=== PATIENT | male | born 1950 | race Caucasian/White ===

== ENCOUNTER 2017-12-12 10:32 | Emergency (ER) | payer MEDICARE, OTHER ==
[~2017-12-12] VITALS: Ht 172.7 cm; Wt 75.0 kg
[~2017-12-12 10:32] MED LIST: FOSI40TA PO; NORV5TAB PO; ZETI10TA5 PO
[2017-12-12 10:33] VITALS: BP 150/76; PULSE 55; RESP 18; TEMP 98.3; O2SAT 99
[2017-12-12] MEDS ORDERED: AMLO5 PO (10:42)
[2017-12-12] MEDS ORDERED: FOSI40TA PO (10:42)
[2017-12-12] MEDS ORDERED: EZET1TAB8 PO (10:42)
[2017-12-12 10:46] VITALS: BP_SYST 149; BP_SYST 156; BP_SYST 168; BP_DIAS 74; BP_DIAS 76; BP_DIAS 80; RESP 16
[2017-12-12] MEDS ORDERED: SODIUM CHLORID 0.9% 500 ML INJ 500 ML IV ONE (11:15)
[2017-12-12] MEDS ORDERED: SODIUM CHLORIDE 0.9% FLUSH 10 ML FLUSH IVF PRN (11:15)
--- NOTE | 2017-12-12 11:18 | PD ---
HPI Chief Complaint: Dizziness Time Seen by Provider: 11:02 Travel History International Travel<30 days: No Contact w/Intl Traveler<30days: No Traveled to known affect area: No History of Present Illness HPI Patient comes emergency department complaining of lightheadedness that began this morning around 7 AM. Patient states that he was working in his garage when symptoms began. Patient reports symptoms improved with rest and get worse with going from sitting to standing. Patient denies any fevers, chest pain, shortness of breath, loss change in bowel or bladder, abdominal pain, being on any blood thinners, headaches, change in vision, or weakness. Severity mild. PFSH Past Medical History Cardiovascular Problems: Yes (TRIPLE BYPASS) High Cholesterol: Yes Diminished Hearing: Yes Hypertension: Yes Tetanus Vaccination: Unknown Influenza Vaccination: No Past Surgical History Abdominal Surgery: Yes (inguinal hernia) Appendectomy: Yes Coronary Artery Bypass Graft: Yes Social History Alcohol Use: No Tobacco Use: No Substance Use: No Allergies-Medications (Allergen,Severity, Reaction): Coded Allergies: No Known Allergies (Verified Adverse Reaction, Unknown, 12/12/17) Reported Meds & Prescriptions Reported Meds & Active Scripts Active Reported Norvasc (Amlodipine Besylate) 5 Mg Tab 5 Mg PO DAILY Fosinopril (Fosinopril Sodium) 40 Mg Tab 40 Mg PO DAILY Ezetimibe 10 Mg Tab 10 Mg PO DAILY Review of Systems Except as stated in HPI: all other systems reviewed are Neg Physical Exam Narrative GENERAL: Well-developed, well nourished, in no acute distress, and non-ill appearing. SKIN: Focused skin assessment warm and dry. HEAD: Atraumatic. Normocephalic. EYES: Pupils equal and round. EOMI. No scleral icterus. No injection or drainage. ENT: No nasal bleeding or discharge. Mucous membranes pink and moist. NECK: Trachea midline. No JVD. Supple. No nuclear rigidity. CARDIOVASCULAR: Regular rate and rhythm. No murmur appreciated. RESPIRATORY: No accessory muscle use. No respiratory distress. Clear to auscultation. Breath sounds equal bilaterally. MUSCULOSKELETAL: No obvious deformities. No clubbing. No cyanosis. No edema. Full range of motion. NEUROLOGICAL: Awake and alert. No obvious cranial nerve deficits. Motor grossly within normal limits. Normal speech. PSYCHIATRIC: Appropriate mood and affect; insight and judgment normal. Data Data Last Documented VS Vital Signs Date Time Temp Pulse Resp B/P (MAP) Pulse Ox O2 Delivery O2 Flow Rate FiO2 12/12/17 12:23 63 16 158/80 (106) 98 12/12/17 11:23 Room Air 12/12/17 10:33 98.3 Orders Orders Electrocardiogram (12/12/17 11:12) Basic Metabolic Panel (Bmp) (12/12/17 11:12) Complete Blood Count With Diff (12/12/17 11:12) Magnesium (Mg) (12/12/17 11:12) Act Partial Throm Time (Ptt) (12/12/17 11:12) Prothrombin Time / Inr (Pt) (12/12/17 11:12) Ct Brain W/O Iv Contrast(Rout) (12/12/17 11:12) Ecg Monitoring (12/12/17 11:12) Iv Access Insert/Monitor (12/12/17 11:12) Oximetry (12/12/17 11:12) Sodium Chloride 0.9% Flush (Ns Flush) (12/12/17 11:15) Sodium Chlorid 0.9% 500 Ml Inj (Ns 500 M (12/12/17 11:15) Ckmb (Isoenzyme) Profile (12/12/17 11:12) Troponin I (12/12/17 11:12) Chest, Single Ap (12/12/17 11:20) CKMB (12/12/17 11:17) CKMB% (12/12/17 11:17) Ed Discharge Order (12/12/17 12:17) Labs Laboratory Tests Test 12/12/17 11:17 White Blood Count 5.8 TH/MM3 Red Blood Count 4.84 MIL/MM3 Hemoglobin 14.8 GM/DL Hematocrit 44.0 % Mean Corpuscular Volume 91.0 FL Mean Corpuscular Hemoglobin 30.6 PG Mean Corpuscular Hemoglobin Concent 33.7 % Red Cell Distribution Width 12.8 % Platelet Count 231 TH/MM3 Mean Platelet Volume 9.5 FL Neutrophils (%) (Auto) 60.7 % Lymphocytes (%) (Auto) 27.3 % Monocytes (%) (Auto) 10.8 % Eosinophils (%) (Auto) 0.9 % Basophils (%) (Auto) 0.3 % Neutrophils # (Auto) 3.5 TH/MM3 Lymphocytes # (Auto) 1.6 TH/MM3 Monocytes # (Auto) 0.6 TH/MM3 Eosinophils # (Auto) 0.0 TH/MM3 Basophils # (Auto) 0.0 TH/MM3 CBC Comment DIFF FINAL Differential Comment Prothrombin Time 10.6 SEC Prothromb Time International Ratio 1.0 RATIO Activated Partial Thromboplast Time 23.6 SEC Blood Urea Nitrogen 19 MG/DL Creatinine 0.99 MG/DL Random Glucose 109 MG/DL Calcium Level 8.7 MG/DL Magnesium Level 2.2 MG/DL Sodium Level 138 MEQ/L Potassium Level 4.0 MEQ/L Chloride Level 104 MEQ/L Carbon Dioxide Level 24.5 MEQ/L Anion Gap 10 MEQ/L Estimat Glomerular Filtration Rate 75 ML/MIN Total Creatine Kinase 112 U/L Creatine Kinase MB 1.2 NG/ML Troponin I LESS THAN 0.02 NG/ML MDM Medical Decision Making Medical Screen Exam Complete: Yes Emergency Medical Condition: Yes Interpretation(s) EKG reviewed by Dr. Abraham shows sinus bradycardia with ventricular rate of 53. No STEMI. Last Impressions Chest X-Ray 12/12/17 1120 Signed Impressions: CONCLUSION: Previous bypass with mild compensated cardiac megaly Head CT 12/12/17 1112 Signed Impressions: CONCLUSION: 1. Negative for acute process Differential Diagnosis Intracranial hemorrhage, pneumonia, metabolic disturbance, dehydration, orthostatics, acute coronary syndrome, arrhythmia, mass Narrative Course Patient presented with lightheadedness. There was no true syncope. The patient denied any symptoms of chest pain, SOB/difficulty breathing, palpitations or skipped heartbeats. The patient denied and headache. The patient denied any bloody or tarry stools. The patient has no significant risk factors and no significant co-morbidities. There was no evidence to suggest neurologic or cardiac etiology or GIB. The diagnosis and findings were discussed with the patient and the patient was instructed to follow up with their primary physician. Patient in no obvious distress upon re-evaluation. All pertinent laboratory/ Radiology result(s) discussed with patient/family. Discussed patient with Dr. Abraham, who saw and evaluated the patient and is in agreement with plan of care and disposition. Any questions/concerns in reference to patient diagnosis/ condition discussed and clarified prior to patient's discharge. Reinforced sheer importance of close follow up with patient's primary physician or primary care clinic. Instructed patient to return to ED immediately, if symptoms return/ worsen. Patient showed understanding of above instructions. Further instructions and recommendations were detailed in discharge paperwork. Patient ambulated without difficulty out of ED at discharge. Diagnosis Primary Impression: Light-headed feeling Patient Instructions: General Instructions, Near Syncope (ED) Additional Instructions: Follow-up with your primary care physician next week for reevaluation. Return to the emergency department if symptoms get worse. Disposition: 01 DISCHARGE HOME Condition: Stable Michele Medina Dec 12, 2017 11:18
[2017-12-12 11:23] VITALS: BP 154/75; PULSE 55; RESP 16; O2SAT 98
[2017-12-12 11:30] LABS: AUTOMATED NEUTROPHIL # 3.5 TH/MM3 (1.8-7.7); BASOPHIL % 0.3 % (0.0-2.0); EOSINOPHIL % 0.9 % (0.0-4.0); HEMOGLOBIN 14.8 GM/DL (13.0-17.0); LYMPH % 27.3 % (9.0-44.0); LYMPHOCYTE # 1.6 TH/MM3 (1.0-4.8); MEAN CORPUSCULAR HEMOGLOBIN 30.6 PG (27.0-34.0); MEAN CORPUSCULAR HGB CONC 33.7 % (32.0-36.0); MEAN PLATELET VOLUME 9.5 FL (7.0-11.0); MONO % 10.8 % (0.0-8.0); MONOCYTE # 0.6 TH/MM3 (0-0.9); NEUT % 60.7 % (16.0-70.0); PLATELET COUNT 231 TH/MM3 (150-450); RED BLOOD COUNT 4.84 MIL/MM3 (4.50-5.90); RED CELL DISTRIBUTION WIDTH 12.8 % (11.6-17.2); WHITE BLOOD COUNT 5.8 TH/MM3 (4.0-11.0)
[2017-12-12 11:36] LABS: PROTHROMBIN TIME - PATIENT 10.6 SEC (9.8-11.6)
[2017-12-12 11:42] LABS: BICARBONATE 24.5 MEQ/L (21.0-32.0); BLOOD UREA NITROGEN 19 MG/DL (7-18); CALCIUM 8.7 MG/DL (8.5-10.1); CHLORIDE 104 MEQ/L (98-107); CREATININE 0.99 MG/DL (0.60-1.30); GLOMERULAR FILTRATION RATE 75 ML/MIN (>89); GLUCOSE,RANDOM 109 MG/DL (74-106); MAGNESIUM 2.2 MG/DL (1.5-2.5); SODIUM (NA) 138 MEQ/L (136-145)
[2017-12-12 11:45] LABS: TROPONIN I LESS THAN 0.02 NG/ML (0.02-0.05)
--- NOTE | 2017-12-12 12:07 | RADRPT ---
EXAM DATE: 12/12/2017 11:52 AM EDT AGE/SEX: 67 years / Male INDICATIONS: Patient complains of dizziness. CLINICAL DATA: This is the patient's initial encounter. Patient reports that signs and symptoms have been present for 1 day and indicates a pain score of 0/10. MEDICAL/SURGICAL HISTORY: Cardiovascular disease. Hypertension. CABG. Appendectomy. RADIATION DOSE: 37.13 CTDI (mGy) COMPARISON: No prior exams available for comparison. TECHNIQUE: CT of the head without contrast. Using automated exposure control and adjustment of the mA and/or kV according to patient size, radiation dose was kept as low as reasonably achievable to ob tain optimal diagnostic quality images. FINDINGS: Cerebrum: The ventricles are normal for age. No evidence of midline shift, mass lesion, hemorrhage or acute infarction. No extraaxial fluid collections are seen. Posterior Fossa: The cerebellum and brainstem are intact. The 4th ventricle is midline. The cerebe llopontine angle is unremarkable. Extracranial: The visualized portion of the orbits is intact. Skull: The calvaria is intact. No evidence of skull fracture. CONCLUSION: 1. Negative for acute process Electronically signed by: Miguel A Carter MD 12/12/2017 12:05 PM EDT
--- NOTE | 2017-12-12 12:08 | RADRPT ---
EXAM DATE: 12/12/2017 12:05 PM EDT AGE/SEX: 67 years / Male INDICATIONS: Light headed and short of breath. CLINICAL DATA: This is the patient's initial encounter. Patient reports that signs and symptoms have been present for 1 day and indicates a pain score of 0/10. MEDICAL/SURGICAL HISTORY: None. CABG. COMPARISON: No prior exams available for comparison. FINDINGS: Sternal wires from previous bypass are noted. Mild cardiomegaly. No infiltrate, pneumothorax or failu re. The portion of the bony skeleton visualized is unremarkable. CONCLUSION: Previous bypass with mild compensated cardiac megaly Electronically signed by: Miguel A Carter MD 12/12/2017 12:06 PM EDT
[2017-12-12 12:23] VITALS: BP 158/80
--- NOTE | 2017-12-12 12:28 | PD ---
Data Data Last Documented VS Vital Signs Date Time Temp Pulse Resp B/P (MAP) Pulse Ox O2 Delivery O2 Flow Rate FiO2 12/12/17 12:23 63 16 158/80 (106) 98 12/12/17 11:23 Room Air 12/12/17 10:33 98.3 Orders Orders Electrocardiogram (12/12/17 11:12) Basic Metabolic Panel (Bmp) (12/12/17 11:12) Complete Blood Count With Diff (12/12/17 11:12) Magnesium (Mg) (12/12/17 11:12) Act Partial Throm Time (Ptt) (12/12/17 11:12) Prothrombin Time / Inr (Pt) (12/12/17 11:12) Ct Brain W/O Iv Contrast(Rout) (12/12/17 11:12) Ecg Monitoring (12/12/17 11:12) Iv Access Insert/Monitor (12/12/17 11:12) Oximetry (12/12/17 11:12) Sodium Chloride 0.9% Flush (Ns Flush) (12/12/17 11:15) Sodium Chlorid 0.9% 500 Ml Inj (Ns 500 M (12/12/17 11:15) Ckmb (Isoenzyme) Profile (12/12/17 11:12) Troponin I (12/12/17 11:12) Chest, Single Ap (12/12/17 11:20) CKMB (12/12/17 11:17) CKMB% (12/12/17 11:17) Ed Discharge Order (12/12/17 12:17) Labs Laboratory Tests Test 12/12/17 11:17 White Blood Count 5.8 TH/MM3 Red Blood Count 4.84 MIL/MM3 Hemoglobin 14.8 GM/DL Hematocrit 44.0 % Mean Corpuscular Volume 91.0 FL Mean Corpuscular Hemoglobin 30.6 PG Mean Corpuscular Hemoglobin Concent 33.7 % Red Cell Distribution Width 12.8 % Platelet Count 231 TH/MM3 Mean Platelet Volume 9.5 FL Neutrophils (%) (Auto) 60.7 % Lymphocytes (%) (Auto) 27.3 % Monocytes (%) (Auto) 10.8 % Eosinophils (%) (Auto) 0.9 % Basophils (%) (Auto) 0.3 % Neutrophils # (Auto) 3.5 TH/MM3 Lymphocytes # (Auto) 1.6 TH/MM3 Monocytes # (Auto) 0.6 TH/MM3 Eosinophils # (Auto) 0.0 TH/MM3 Basophils # (Auto) 0.0 TH/MM3 CBC Comment DIFF FINAL Differential Comment Prothrombin Time 10.6 SEC Prothromb Time International Ratio 1.0 RATIO Activated Partial Thromboplast Time 23.6 SEC Blood Urea Nitrogen 19 MG/DL Creatinine 0.99 MG/DL Random Glucose 109 MG/DL Calcium Level 8.7 MG/DL Magnesium Level 2.2 MG/DL Sodium Level 138 MEQ/L Potassium Level 4.0 MEQ/L Chloride Level 104 MEQ/L Carbon Dioxide Level 24.5 MEQ/L Anion Gap 10 MEQ/L Estimat Glomerular Filtration Rate 75 ML/MIN Total Creatine Kinase 112 U/L Creatine Kinase MB 1.2 NG/ML Troponin I LESS THAN 0.02 NG/ML MDM Supervised Visit with SEAN: Yes Narrative Course I, Dr. Abraham, have reviewed the advance practice practitioner's documentation and am in agreement, met with the patient face to face, made the diagnosis, and the medical decision making was done by me. *My assessment and Findings: Extensive workup was done and I reviewed the entirety of it. Discussed with patient. Results are negative. Symptoms are vague and no indication for hospital stay. No acute ACS or CVA. Diagnosis Primary Impression: Light-headed feeling Patient Instructions: General Instructions, Near Syncope (ED) Departure Forms: Tests/Procedures Additional Instruction: Follow-up with your primary care physician next week for reevaluation. Return to the emergency department if symptoms get worse. Disposition: 01 DISCHARGE HOME Condition: Stable Ran Abraham MD Dec 12, 2017 12:28
--- NOTE | 2017-12-13 12:45 | EKG ---
Date Performed: 12/12/2017 Time Performed: 10:32:25 PTAGE: 67 years EKG: SINUS BRADYCARDIA WITH FIRST DEGREE AV BLOCK POSSIBLE SEPTAL MYOCARDIAL INFARCTION ABNORMAL ECG PREVIOUS TRACING : 06/08/2012 10.18 New Q-wave in V2 Clinical correlation is recommended DOCTOR: Aristides Murillo Interpretating Date/Time 12/13/2017 12:44:39
== END 2017-12-12 12:35 | disposition home or self-care (01) ==
LOC: NEPE 10:32
DX: R42 Dizziness and giddiness (principal); I10 Essential (primary) hypertension; R00.1 Bradycardia, unspecified; Z79.899 Other long term (current) drug therapy
CPT/HCPCS: 70450; 71045; 80048; 82550; 82552; 83735; 84484; 85025; 85610; 85730; 93005; 99285